=== PATIENT | female | born 1955 | race African-American/Black ===

== ENCOUNTER 2020-03-31 00:26 | Day surgery (SDC) | payer OTHER ==
[2020-03-31 00:47] VITALS: BMI 32.1
[2020-03-31] MEDS ORDERED: VANCOMYCIN 1 GM in D5W (PRE-DOCKED) 1,000 MG/250 ML IVPB ONE (00:55)
--- NOTE | 2020-03-31 01:02 | PDOC ---
History of Present Illness - General Chief Complaint: Wound Stated Complaint: SENT BY PCP Time Seen by Provider: 03/31/20 00:41 - History of Present Illness Initial Comments: HPI: 03/31/20 00:57 64 yo F PMH seizure disorder on topiramate (last seizure 2008), recently diagnosed diabetes in February 2020 on metformin, presenting from home for planned sebaceous cyst drainage with Dr. Michel today. States that she has had the cyst for many years on her posterior head, has had it drained in the past but never in the hospital. Saw Dr. Michel on Saturday, who asked her to come to the ER between 0000 and 0100 on for planned drainage later today. Has no other concerns. PCP: Dr. Duenas at [facility] Neuro: Dr. Kincaid at [facility] ROS: GENERAL/CONSTITUTIONAL: denies fever, chills, diaphoresis, generalized weakness HEAD, EYES, EARS, NOSE AND THROAT: denies rhinorrhea, nasal congestion, throat pain, throat swelling NEUROLOGIC: denies headache, focal weakness, dizziness, unsteady gait CARDIOVASCULAR: denies chest pain, syncope, palpitations, irregular heart rate, lightheadedness, peripheral edema RESPIRATORY: denies cough, shortness of breath, dyspnea with exertion GASTROINTESTINAL: denies abdominal pain, abdominal distension, nausea, vomiting, diarrhea, constipation GENITOURINARY: denies dysuria, frequency, urgency, hesitancy MUSCULOSKELETAL: denies myalgia, arthralgia, joint swelling, back pain, neck pain SKIN: denies rash, itching, pallor HEMATOLOGIC/IMMUNOLOGIC: denies easy bleeding, easy bruising, lymphadenopathy, frequent infections ENDOCRINE: denies unexplained weight gain, unexplained weight loss, heat intolerance, cold intolerance PSYCHIATRIC: denies anxiety, depression, suicidal or homicidal ideation, hallucinations PE: Gen: well-developed, well-nourished, NAD Neuro: AAOX4, CN II-XII intact HEENT: atraumatic, normocephalic Neck: trachea midline, supple CV: regular rate, regular rhythm, no murmurs, rubs, or gallops Pulm: CTA b/l, no wheezing Abd: soft, non-distended, non-tender MSK: full ROM, intact pulses Extr: no edema, no deformities Skin: warm, dry. Large posterior draining sebaceous cyst on posterior midline head just above neck MDM: Called Dr. Michel, who confirmed that he wants pre-op labs and antibiotics. - CBC, CMP - PT/PTT - Type and screen - EKG, CXR - NPO - vancomycin - admit 03/31/20 01:21 EKG normal sinus at 72 bpm, NC 128, QRS 70, QTc 418, T wave inversions in V2 and V3. No prior EKG to compare with. 03/31/20 02:22 CBC unremarkable. 03/31/20 02:29 Discussed with inpatient team, patient is admitted. Past History - Medical History Allergies/Adverse Reactions: Allergies Allergy/AdvReac Type Severity Reaction Status Date / Time cephalexin [From Keflex] Allergy Verified 03/31/20 01:23 - Reproductive History Is Patient Now?: No - Psycho-Social/Smoking History Smoking History: Current every day smoker Number of Cigarettes Smoked Daily: 4 Information on smoking cessation initiated: No - Substance Abuse Hx (Audit-C & DAST Scrn) How often the patient has a drink containing alcohol: Never Score: In Men: 4 or > Positive; In Women: 3 or > Positive: 0 Screen Result (Pos requires Nsg. Audit-10AR): Negative In the last yr the pt used illegal drug/Rx for NonMed reason: No Score: Yes response is considered Positive: 0 Screen Result (Positive result requires Nsg. DAST-10): Negative *Physical Exam - Vital Signs Last Vital Signs Temp Pulse Resp BP Pulse Ox 97.9 F 79 20 122/71 98 03/31/20 00:44 03/31/20 00:44 03/31/20 00:44 03/31/20 00:44 03/31/20 00:44 ED Treatment Course - LABORATORY CBC & Chemistry Diagram: 03/31/20 01:15 03/31/20 01:15 Discharge - Discharge Information Problems reviewed: Yes Clinical Impression/Diagnosis: Sebaceous cyst, Infected sebaceous cyst of skin Condition: Fair - Admission Yes - Follow up/Referral - Patient Discharge Instructions - Post Discharge Activity
--- NOTE | 2020-03-31 01:10 | PDOC ---
Attending Attestation - Resident Resident Name: Louise Guaman - ED Attending Attestation I have performed the following: I have examined & evaluated the patient, The case was reviewed & discussed with the resident, I agree w/resident's findings & plan, Exceptions are as noted - HPI HPI: 03/31/20 00:58 64yo female with a posterior cervical sebaceous cyst which opened up earlier this week with copious amounts of purulent drainage. Pt denies f/c. C/o neck pain. No garcia. No cp/sob. No abd pain. No n/v/d. Pt sent by DR. Michel for surgery today. States the cyst opened up prior to seeing Dr. Michel in the office on saturday. - Physicial Exam PE: 03/31/20 01:10 Gen: aaox3, uncomfortable neck: supple, posterior neck with large sebaceous cyst with purulent foul smelling discharge and surrounding induration and fluctuance, ttp, hot to touch heart: +s1s2 reg lungs: cta b/l abd: soft, nt/nd +bs ext: no c/c/e - Medical Decision Making 03/31/20 01:11 a/p: 64yo female with large infected sebaceous cyst to the posterior neck -draining foul smelling purulent drainage -ttp -indurated and fluctuance -will send preop labs, ivf, vanco -case discussed with Dr. Michel who will take the patient to the OR in the AM to operative on the infected sebaceous cyst -npo 03/31/20 01:47 microblog sent to [facility] for admission plan for OR today with Dr. Michel Heart Score/ECG Review - ECG Intrepretation Comment:: 03/31/20 01:29 sinus at 72, nl axis, t wave inversions v1-2, t wave flattening diffusely, no acute st changes Discharge - Discharge Information Problems reviewed: Yes Clinical Impression/Diagnosis: Sebaceous cyst, Infected sebaceous cyst of skin Condition: Fair - Admission Yes - Follow up/Referral Referrals: Noelle Duenas [Primary Care Provider] - - Patient Discharge Instructions - Post Discharge Activity
[2020-03-31] MEDS ORDERED: LACTATED RINGERS SOLUTION 1,000 ML/1,000 ML INFUS.BAG IV STA (01:12)
[2020-03-31] MEDS ORDERED: VANCOMYCIN 1 GRAM (PRE-DOCKED) 1,000 MG/250 ML BAG IVPB ONE ×2 (01:26→01:30)
[2020-03-31 01:43] LABS: BASO % 0.8 % (0-2.0); EOS % 2.8 % (0-4.5); HEMATOCRIT 39.4 % (32.4-45.2); HEMOGLOBIN 13.1 GM/dL (10.7-15.3); MCH 30.6 pg (25.7-33.7); MCHC 33.3 g/dl (32.0-36.0); MEAN CELL VOLUME 91.9 fl (80-96); MEAN PLT VOLUME 8.4 fl (7.5-11.1); MONO % 5.9 % (3.8-10.2); NEUT % 64.5 % (42.8-82.8); PLATELET COUNT 266 K/MM3 (134-434); RBC 4.29 M/mm3 (3.60-5.2); RDW 13.2 % (11.6-15.6); WHITE BLOOD COUNT 7.9 K/mm3 (4.0-10.0)
[2020-03-31 02:23] LABS: ALBUMIN 3.9 g/dl (3.4-5.0); BLOOD UREA NITROGEN 20.6 mg/dL (7-18); CALCIUM 9.5 mg/dL (8.5-10.1); CREATININE 1.1 mg/dL (0.55-1.3); POTASSIUM 5.1 mmol/L (3.5-5.1); TOT PROT 7.8 g/dl (6.4-8.2)
[2020-03-31 02:28] LABS: BILIRUBIN,TOTAL 0.5 mg/dL (0.2-1)
[2020-03-31 02:54] LABS: INR 1.08 (0.83-1.09); PROTHROMBIN TIME (PATIENT) 12.8 SEC (9.7-13.0)
[2020-03-31 02:57] LABS: ACTIVATED PTT 29.8 SECONDS (25.2-36.5)
--- OUTSIDE RECORDS SUMMARY | 2020-03-31 02:59 | XMS ---
:1955 Author Organization [facility] Support Name Relationship Address Phone [facility] Unavailable [address] [phone] [place] [address] GIANCARLO GOLDBERG SISTER [address] [place] [address] Re-disclosure Warning The records that you are about to access may contain information from federally- assisted alcohol or drug abuse programs. If such information is present, then the following federally mandated warning applies: This information has been disclosed to you from records protected by federal confidentiality rules (42 CFR part 2). The federal rules prohibit you from making any further disclosure of this information unless further disclosure is expressly permitted by the written consent of the person to whom it pertains or as otherwise permitted by 42 CFR part 2. A general authorization for the release of medical or other information is NOT sufficient for this purpose. The Federal rules restrict any use of the information to criminally investigate or prosecute any alcohol or drug abuse patient.The records that you are about to access may contain highly sensitive health information, the redisclosure of which is protected by Article 27-F of the [place] Public Health law. If you continue you may haveaccess to information: Regarding HIV / AIDS; Provided by facilities licensed or operated by the [place] [facility] [place] Office of Mental Health; or Provided by the [facility] [place] Office for People With Developmental Disabilities. If such information is present, then the following [facility] mandated warning applies: This information has been disclosed to you from confidential records which are protected by state law. State law prohibits you from making any further disclosure of this information without the specific written consent of the person to whom it pertains, or as otherwise permitted by law. Any unauthorized further disclosure in violation of state law may result in a fine or long term sentence or both. A general authorization for the release of medical or other information is NOT sufficient authorization for further disclosure. Insurance Providers Payer name Policy type Policy ID Covered Covered republican's Policy P anita / Coverage republican ID relationship to [place] Inf ormation type lomax CIGNA [id number] SP [id number] HEALTHCARE PPO CIGNA [id number] SP [id number] HEALTHCARE PPO Results ID Date Data Source [id number] 03/23/2020 12:00:00 AM EDT [facility] Name Value Range Interpretation Code Description Data Connie rce(s) Supporting Document(s ) nCoV [facility] RNA XXX TANA+probe- Imp This lab was ordered by [employer] alas reported by [facility]. ID Date Data Source [id number] 03/15/2020 12:00:00 AM EDT [facility] Name Value Range Interpretation Code Description Data Connie rce(s) Supporting Document(s ) nCoV [facility] RNA XXX TANA+probe- Imp This lab was ordered by [employer] alas reported by [employer]. ID Date Data Source [id number] 03/08/2020 12:00:00 AM EDT [facility] Name Value Range Interpretation Code Description Data Connie rce(s) Supporting Document(s ) nCoV [facility] RNA XXX TANA+probe- Imp This lab was ordered by [employer] alas reported by [employer]. ID Date Data Source [id number] 03/02/2020 12:00:00 AM EDT [facility] Name Value Range Interpretation Code Description Data Connie rce(s) Supporting Document(s ) 2018-nCoV [facility] RNA XXX TANA+probe- Imp This lab was ordered by [employer] alas reported by [facility]. ID Date Data Source [id number] 02/24/2020 12:00:00 AM EDT [facility] Name Value Range Interpretation Code Description Data Connie rce(s) Supporting Document(s ) nCoV [facility] RNA XXX TANA+probe- Imp This lab was ordered by [facility] alas reported by [facility]. ID Date Data Source [id number] 02/10/2020 12:00:00 AM EDT [facility] Name Value Range Interpretation Code Description Data Connie rce(s) Supporting Document(s ) nCoV [facility] RNA XXX TANA+probe- Imp This lab was ordered by [employer] alas reported by [facility]. ID Date Data Source [id number] 02/03/2020 12:00:00 AM EDT [facility] Name Value Range Interpretation Code Description Data Connie rce(s) Supporting Document(s ) nCoV [facility] RNA XXX TANA+probe- Imp This lab was ordered by [employer] alas reported by [employer]. ID Date Data Source [id number] 01/26/2020 12:00:00 AM EDT [facility] Name Value Range Interpretation Code Description Data Connie rce(s) Supporting Document(s ) nCoV [facility] RNA XXX TANA+probe- Imp This lab was ordered by [employer] alas reported by [employer]. ID Date Data Source [id number] 01/19/2020 12:00:00 AM EDT [facility] Name Value Range Interpretation Code Description Data Connie rce(s) Supporting Document(s ) 2018-nCoV [facility] RNA XXX TANA+probe- Imp This lab was ordered by [employer] alas reported by [employer]. ID Date Data Source [id number] 01/13/2020 12:00:00 AM EDT [facility] Name Value Range Interpretation Code Description Data Connie rce(s) Supporting Document(s ) 2018-nCoV [facility] RNA XXX TANA+probe- Imp This lab was ordered by [employer] alas reported by [employer]. ID Date Data Source [id number] 01/05/2020 12:00:00 AM EDT [facility] Name Value Range Interpretation Code Description Data Connie rce(s) Supporting Document(s ) nCoV [facility] RNA XXX TANA+probe- Imp This lab was ordered by [employer] alas reported by [facility]. ID Date Data Source [id number] 12/30/2019 12:00:00 AM EDT [facility] Name Value Range Interpretation Code Description Data Connie rce(s) Supporting Document(s ) nCoV [facility] RNA XXX TANA+probe- Imp This lab was ordered by [employer] al[facility] reported by [facility]. ID Date Data Source [id number] 12/23/2019 12:00:00 AM EDT [facility] Name Value Range Interpretation Code Description Data Connie rce(s) Supporting Document(s ) nCoV [facility] RNA XXX TANA+probe- Imp This lab was ordered by [employer] [facility] reported by [facility]. ID Date Data Source [id number] 12/16/2019 12:00:00 AM EDT [facility] Name Value Range Interpretation Code Description Data Connie rce(s) Supporting Document(s ) nCoV [facility] RNA XXX TANA+probe- Imp This lab was ordered by [employer] [facility] reported by [facility]. ID Date Data Source [id number] 12/08/2019 12:00:00 AM EDT [facility] Name Value Range Interpretation Code Description Data Connie rce(s) Supporting Document(s ) nCoV [facility] RNA XXX TANA+probe- Imp This lab was ordered by [employer] [facility] reported by [facility]. ID Date Data Source [id number] 12/03/2019 12:00:00 AM EDT [facility] Name Value Range Interpretation Code Description Data Connie rce(s) Supporting Document(s ) nCoV [facility] RNA XXX TANA+probe- Imp This lab was ordered by [employer] [facility] reported by [facility]. ID Date Data Source [id number] 12/01/2019 12:00:00 AM EDT [facility] Name Value Range Interpretation Code Description Data Connie rce(s) Supporting Document(s ) nCoV [facility] RNA XXX TANA+probe- Imp This lab was ordered by [employer] [facility] reported by [facility]. ID Date Data Source [id number] 11/26/2019 12:00:00 AM EDT [facility] Name Value Range Interpretation Code Description Data Connie rce(s) Supporting Document(s ) nCoV [facility] RNA XXX TANA+probe- Imp This lab was ordered by [employer] alas reported by [facility]. Procedure
--- NOTE | 2020-03-31 03:28 | PN ---
Teaching Attending Note Name of Resident: Ruth Lim ATTENDING PHYSICIAN STATEMENT I saw and evaluated the patient. I reviewed the resident's note and discussed the case with the resident. I agree with the resident's findings and plan as documented. SUBJECTIVE: 64yoF with h/o seizure disorder on topiramate, T2DM, and sebaceous cyst who presents for sebaceous cyst drainage by Dr. Michel. Has had the cyst drained numerous times in the past, most recently last year. Over the past week it has been more bothersome and started to drain spontaneously. She saw Dr. Michel for the first time on 03/30 and was told to present to the ED overnight for admission and cyst drainage. Denies fever, chills, chest pain, SOB, nausea, vomiting. OBJECTIVE: Vital Signs (72 hours) 03/31/20 00:44 Temperature 97.9 F Pulse Rate 79 Respiratory 20 Rate Blood Pressure 122/71 O2 Sat by Pulse 98 Oximetry (%) EXAM Gen: awake, alert, well-appearing CV: RRR, no MRG Resp: CTAB, unlabored Abd: Soft, NT, ND, +BS Ext: no edema Derm: Roughly 1cm open cyst posterior neck with purulent drainage. Tender to palpation surrounding area with induration and mild erythema, underlying fluctuance appreciated at least 3cm in diameter. Neuro: CN II-XII grossly intact, gait steady Psych: AOx3, appropriate mood affect Laboratory Results - last 24 hr 03/31/20 03/31/20 03/31/20 01:15 01:15 01:15 WBC 7.9 RBC 4.29 Hgb 13.1 Hct 39.4 MCV 91.9 MCH 30.6 MCHC 33.3 RDW 13.2 Plt Count 266 MPV 8.4 Absolute Neuts (auto) 5.1 Neutrophils % 64.5 Lymphocytes % 26.0 Monocytes % 5.9 Eosinophils % 2.8 Basophils % 0.8 Nucleated RBC % 0 PT with INR 12.80 INR 1.08 PTT (Actin FS) 29.8 Sodium 139 Potassium 5.1 Chloride 112 H Carbon Dioxide 23 Anion Gap 5 L BUN 20.6 H Creatinine 1.1 Est GFR (CKD-EPI)AfAm 61.44 Est GFR (CKD-EPI)NonAf 53.01 Random Glucose 89 Calcium 9.5 Total Bilirubin 0.5 AST 34 ALT 43 Alkaline Phosphatase 95 Total Protein 7.8 Albumin 3.9 SARS-CoV-2 (PCR) 03/31/20 01:40 WBC RBC Hgb Hct MCV MCH MCHC RDW Plt Count MPV Absolute Neuts (auto) Neutrophils % Lymphocytes % Monocytes % Eosinophils % Basophils % Nucleated RBC % PT with INR INR PTT (Actin FS) Sodium Potassium Chloride Carbon Dioxide Anion Gap BUN Creatinine Est GFR (CKD-EPI)AfAm Est GFR (CKD-EPI)NonAf Random Glucose Calcium Total Bilirubin AST ALT Alkaline Phosphatase Total Protein Albumin SARS-CoV-2 (PCR) Negative EKG reviewed in chart - TWI V1-V3, no prior available for comparison ASSESSMENT AND PLAN: 64yoF with h/o seizure disorder on topiramate, T2DM, and sebaceous cyst who presents for sebaceous cyst drainage by Dr. Michel. Sebaceous cyst with cellulitis Planned for OR in the morning with Dr. Michel - NPO, maintenance fluids - antibiotics per surgery - COVID negative Seizure disorder: continue topiramate T2DM: hold oral meds. ISS DVT ppx: SCD pending OR
--- NOTE | 2020-03-31 04:23 | HP ---
CHIEF COMPLAINT: Admission for sebaceous cyst drainage this morning by Dr. Michel HISTORY OF PRESENT ILLNESS: Lei Barker is a 64 year old with PMH seizure, diabetes, hypertension who reports to [facility] ED for planned sebaceous cyst surgery by Dr. Michel. She developed the cyst approximately 1 week ago; it began to drain on Saturday. She saw Dr. Michel on Saturday who scheduled her for surgery. She denies headache, fever, chills, chest pain, nausea, vomiting, abdominal pain. Recent Travel: None PAST MEDICAL HISTORY: Seizures -- last seizure 2008 PAST SURGICAL HISTORY: Social History: Smoking: None Alcohol: None Drugs: Smokes marijuana on weekend Allergies cephalexin [From Keflex] Allergy (Verified 03/31/20 01:23) HOME MEDICATIONS: REVIEW OF SYSTEMS See HPI PHYSICAL EXAMINATION Vital Signs - 24 hr 03/31/20 00:44 Temperature 97.9 F Pulse Rate 79 Respiratory 20 Rate Blood Pressure 122/71 O2 Sat by Pulse 98 Oximetry (%) GENERAL: Awake, alert, and fully oriented, in no acute distress. HEAD: Normal with no signs of trauma. EYES: Pupils equal, round and reactive to light, extraocular movements intact, sclera anicteric, conjunctiva clear. Neck: 2x2 cm cyst draining purulent , whitish, with blood tinged material. With surrounding erythema. EARS, NOSE, THROAT: Ears normal, nares patent, oropharynx clear without exudates. Moist mucous membranes. LUNGS: Breath sounds equal, clear to auscultation bilaterally. No wheezes, and no crackles. No accessory muscle use. HEART: Regular rate and rhythm, normal S1 and S2 without murmur, rub or gallop. ABDOMEN: Soft, nontender, not distended, normoactive bowel sounds, no guarding, no rebound, no masses. No hepatomegaly or splenomegaly. MUSCULOSKELETAL: Normal range of motion at all joints. No bony deformities or tenderness. No CVA tenderness. LOWER EXTREMITIES: 2+ pulses, warm, well-perfused. No calf tenderness. No peripheral edema. Laboratory Results - last 24 hr 03/31/20 03/31/20 03/31/20 01:15 01:15 01:15 WBC 7.9 RBC 4.29 Hgb 13.1 Hct 39.4 MCV 91.9 MCH 30.6 MCHC 33.3 RDW 13.2 Plt Count 266 MPV 8.4 Absolute Neuts (auto) 5.1 Neutrophils % 64.5 Lymphocytes % 26.0 Monocytes % 5.9 Eosinophils % 2.8 Basophils % 0.8 Nucleated RBC % 0 PT with INR 12.80 INR 1.08 PTT (Actin FS) 29.8 Sodium 139 Potassium 5.1 Chloride 112 H Carbon Dioxide 23 Anion Gap 5 L BUN 20.6 H Creatinine 1.1 Est GFR (CKD-EPI)AfAm 61.44 Est GFR (CKD-EPI)NonAf 53.01 Random Glucose 89 Calcium 9.5 Total Bilirubin 0.5 AST 34 ALT 43 Alkaline Phosphatase 95 Total Protein 7.8 Albumin 3.9 SARS-CoV-2 (PCR) 03/31/20 01:40 WBC RBC Hgb Hct MCV MCH MCHC RDW Plt Count MPV Absolute Neuts (auto) Neutrophils % Lymphocytes % Monocytes % Eosinophils % Basophils % Nucleated RBC % PT with INR INR PTT (Actin FS) Sodium Potassium Chloride Carbon Dioxide Anion Gap BUN Creatinine Est GFR (CKD-EPI)AfAm Est GFR (CKD-EPI)NonAf Random Glucose Calcium Total Bilirubin AST ALT Alkaline Phosphatase Total Protein Albumin SARS-CoV-2 (PCR) Negative ASSESSMENT/PLAN: Lei Barker is a 64 year old with PMH seizure, diabetes, hypertension who reports to [facility] ED for planned sebaceous cyst surgery by Dr. Michel. Admitted for surgery later this morning. # Sebaceous Cyst - Draining purulent material - Surgery with Dr. Michel this morning - Pre op labs ordered: CBC, CMP, PT, PTT, Type and Screen, NPO # Diabetes - Hold meformin - Sliding scale insulin DVT prophylaxis: SCDs Family Medical History Family History: As Documented Visit type - Emergency Visit Emergency Visit: No - New Patient This patient is new to me today: Yes Date on this admission: 03/31/20 - Critical Care Critical Care patient: No ATTENDING PHYSICIAN STATEMENT I saw and evaluated the patient. I reviewed the resident's note and discussed the case with the resident. I agree with the resident's findings and plan as documented. SUBJECTIVE: OBJECTIVE: ASSESSMENT AND PLAN:
[2020-03-31] MEDS ORDERED: LACTATED RINGERS SOLUTION 1,000 ML IV SCH ×2 (04:30→14:13)
[2020-03-31] MEDS: INSULIN SLIDING SCALE (NOVOLOG) 1 VIAL SQ SCH ×2 (09:14→15:03)
--- NOTE | 2020-03-31 09:51 | PN ---
Progress Note (short form) - Note Progress Note: S: To go for OR procedure for cyst removal. Patient has had multiple accounts of sebaceous cyst that's been returning. Patient noted that the cyst has been draining since . No other complaints. Pt has packing ALLERGIC TO KEFLEX (RASH/ITCHING) Vital Signs Temperature 98.2 F 03/31/20 04:32 Pulse Rate 68 03/31/20 09:17 Respiratory Rate 18 03/31/20 09:17 Blood Pressure 100/64 03/31/20 09:17 O2 Sat by Pulse Oximetry (%) 95 03/31/20 09:17 PE: Gen: NAD, awake, alert, oriented HEENT: Nc/At, EOMI, ZACHERY, no areas of tracking erythema Neck: Posterior aspect neck 2x3 cm draining cyst. packed with bandage on top. No surrounding erythema, no fluctuance apprecaited LUNG: CTA b/l without wheezes or rales RRR: RRR no murmurs ABD: soft, NT/ND, + BS EXT: No edema CBC, BMP 03/31/20 01:15 03/31/20 01:15 Active Medications Lactated Ringer's (Lactated Ringers Solution) 1,000 mls @ 125 mls/hr IV ASDIR [facility] Last Admin: 03/31/20 08:03 Dose: 125 mls/hr Documented by: Insulin Aspart (Novolog Vial Sliding Scale -) 1 vial SQ ACHS [facility]; Protocol Last Admin: 03/31/20 09:14 Dose: Not Given Documented by: A/P: Sebaceous Cyst Seizure disorder history Type 2 DM, controlled --OR for procedure with Dr. Michel today --ABX therapy and can switch to oral therapy post-procedure --LR 100cc/hr for maintenance --DM controlled: ISS for coverage if needed --Continue Topimax for seizure disorder Dispo: post-procedural dispo pending surgery recs Faizan Abel DO - [facility]
[2020-03-31] MEDS ORDERED: TOPIRAMATE 100 MG TABLET PO SCH ×2 (10:00→22:00)
--- OUTSIDE RECORDS SUMMARY | 2020-03-31 10:24 | XMS ---
:1955 Author Organization [facility] Support Name Relationship Address Phone [facility] Unavailable [address] [place] [address] GIANCARLO GOLDBERG SISTER [address] [phone] [place] [address] Re-disclosure Warning The records that you are [...] is protected by Article 27-F of the [facility] Public Health law. If you continue you may haveaccess to information: Regarding HIV / AIDS; Provided by facilities licensed or operated by the [facility] Office of Mental Health; or Provided by the [facility] Office for People With Developmental Disabilities. If such information is present, then the following [facility] mandated warning applies: This information has been [...] law may result in a fine or senior care sentence or both. A general authorization for the release of medical or other information is NOT sufficient authorization for further disclosure. Insurance Providers Payer name Policy type Policy ID Covered Covered democrat's Policy P anita / Coverage democrat ID relationship to [place] Inf ormation type [place] CIGNA [id number] SP [id number] HEALTHCARE PPO CIGNA [id number] SP [id number] HEALTHCARE PPO Results ID Date Data Source [id number] 03/23/2020 12:00:00 AM EDT [facility] Name Value Range Interpretation Code Description Data Connie rce(s) Supporting Document(s ) nCoV [facility] RNA XXX TANA+probe- Imp This lab was ordered by [employer] alas reported by [employer]. ID Date Data Source [id number] 03/15/2020 12:00:00 AM EDT [facility] Name Value Range Interpretation Code Description Data Connie rce(s) Supporting Document(s ) nCoV [facility] RNA XXX TANA+probe- Imp This lab was ordered by [employer] alas reported by [employer]. ID Date Data Source [id number] 03/08/2020 12:00:00 AM EDT [facility] Name Value Range Interpretation Code Description Data Connie rce(s) Supporting Document(s ) nCoV [facility] RNA XXX TANA+probe- Imp This lab was ordered by [employer] [facility] reported by [employer]. ID Date Data Source [id number] 03/02/2020 12:00:00 AM EDT [facility] Name Value Range Interpretation Code Description Data Connie rce(s) Supporting Document(s ) 2018-nCoV [facility] RNA XXX TANA+probe- Imp This lab was ordered by [employer] [facility]as reported by [employer]. ID Date Data Source [id number] 02/24/2020 12:00:00 AM EDT [facility] Name Value Range Interpretation Code Description Data Connie rce(s) Supporting Document(s ) nCoV [facility] RNA XXX TANA+probe- Imp This lab was ordered by [employer] alas reported by [employer]. ID Date Data Source [id number] 02/10/2020 12:00:00 AM EDT [facility] Name Value Range Interpretation Code Description Data Connie rce(s) Supporting Document(s ) nCoV [facility] RNA XXX TANA+probe- Imp This lab was ordered by [employer] [facility] reported by [employer]. ID Date Data Source [id number] 02/03/2020 12:00:00 AM EDT [facility] Name Value Range Interpretation Code Description Data Connie rce(s) Supporting Document(s ) nCoV [facility] RNA XXX TANA+probe- Imp This lab was ordered by [employer] [facility] reported by [employer]. ID Date Data Source [id number] 01/26/2020 12:00:00 AM EDT [facility] Name Value Range Interpretation Code Description Data Connie rce(s) Supporting Document(s ) nCoV [facility] RNA XXX TANA+probe- Imp This lab was ordered by [employer] [facility] reported by [employer]. ID Date Data Source [id number] 01/19/2020 12:00:00 AM EDT [facility] Name Value Range Interpretation Code Description Data Connie rce(s) Supporting Document(s ) 2018-nCoV [facility] RNA XXX TANA+probe- Imp This lab was ordered by [employer] [facility] reported by [employer]. ID Date Data Source [id number] 01/13/2020 12:00:00 AM EDT [facility] Name Value Range Interpretation Code Description Data Connie rce(s) Supporting Document(s ) 2018-nCoV [facility] RNA XXX TANA+probe- Imp This lab was ordered by [employer] al[facility] reported by [employer]. ID Date Data Source [id number] 01/05/2020 12:00:00 AM EDT [facility] Name Value Range Interpretation Code Description Data Connie rce(s) Supporting Document(s ) nCoV [facility] RNA XXX TANA+probe- Imp This lab was ordered by [employer] [facility] reported by [employer]. ID Date Data Source [id number] 12/30/2019 12:00:00 AM EDT [facility] Name Value Range Interpretation Code Description Data Connie rce(s) Supporting Document(s ) nCoV [facility] RNA XXX TANA+probe- Imp This lab was ordered by [employer] [facility] reported by [employer]. ID Date Data Source [id number] 12/23/2019 12:00:00 AM EDT [facility] Name Value Range Interpretation Code Description Data Connie rce(s) Supporting Document(s ) nCoV [facility] RNA XXX TANA+probe- Imp This lab was ordered by [employer] [facility] reported by [employer]. ID Date Data Source [id number] 12/16/2019 12:00:00 AM EDT [facility] Name Value Range Interpretation Code Description Data Connie rce(s) Supporting Document(s ) nCoV [facility] RNA XXX TANA+probe- Imp This lab was ordered by [employer] [facility] reported by [employer]. ID Date Data Source [id number] 12/08/2019 12:00:00 AM EDT [facility] Name Value Range Interpretation Code Description Data Connie rce(s) Supporting Document(s ) nCoV [facility] RNA XXX TANA+probe- Imp This lab was ordered by [employer] [facility] reported by [employer]. ID Date Data Source [id number] 12/03/2019 12:00:00 AM EDT [facility] Name Value Range Interpretation Code Description Data Connie rce(s) Supporting Document(s ) nCoV [facility] RNA XXX TANA+probe- Imp This lab was ordered by [employer] [facility] reported by [employer]. ID Date Data Source [id number] 12/01/2019 12:00:00 AM EDT [facility] Name Value Range Interpretation Code Description Data Connie rce(s) Supporting Document(s ) nCoV [facility] RNA XXX TANA+probe- Imp This lab was ordered by [employer] [facility] reported by [employer]. ID Date Data Source [id number] 11/26/2019 12:00:00 AM EDT [facility] Name Value Range Interpretation Code Description Data Connie rce(s) Supporting Document(s ) nCoV [facility] RNA XXX TANA+probe- Imp This lab was ordered by [employer] [facility] reported by [employer]. Procedure
[2020-03-31] MEDS ORDERED: MIDAZOLAM HCL 2 MG/2 ML SINGLE DOSE VIAL ONE (11:16)
[2020-03-31] MEDS ORDERED: PROPOFOL 20 ML ONE (11:16)
[2020-03-31] MEDS ORDERED: LIDOCAINE HCL/PF 2% SDV 5ML VIAL ONE (11:21)
[2020-03-31] MEDS ORDERED: oxyCODONE HCL 5 MG TABLET PO PRN ×2 (13:44→14:13)
[2020-03-31] MEDS ORDERED: ACETAMINOPHEN 325 MG TABLET (FP) PO PRN ×2 (13:45→14:13)
--- NOTE | 2020-03-31 13:47 | OP ---
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
--- NOTE | 2020-03-31 14:04 | EKG ---
Test Reason : Blood Pressure : / mmHG Vent. Rate : 072 BPM Atrial Rate : 072 BPM P-R Int : 128 ms QRS Dur : 070 ms QT Int : 382 ms P-R-T Axes : 022 -12 030 degrees QTc Int : 418 ms NORMAL SINUS RHYTHM NONSPECIFIC T WAVE ABNORMALITY ABNORMAL ECG NO PREVIOUS ECGS AVAILABLE Confirmed by MAKENZIE WHITTINGTON MD ([id number]) on 03/31/2020 2:03:50 PM Referred By: Confirmed By:MAKENZIE WHITTINGTON MD
[2020-03-31 14:25] VITALS: TEMP 98.4
[2020-03-31] MEDS ORDERED: INSULIN SLIDING SCALE (NOVOLOG) 1 VIAL SQ SCH (16:30)
[2020-03-31 18:17] VITALS: BP 107/58; PULSE 84
--- NOTE | 2020-04-04 12:53 | OP ---
DATE OF OPERATION: 03/31/2020 PREOPERATIVE DIAGNOSIS: Infected sebaceous cyst of the posterior neck. POSTOPERATIVE DIAGNOSIS: Infected sebaceous cyst of the posterior neck. PROCEDURE: Incision and drainage and excision of infected sebaceous cyst of the posterior neck. SURGEON: Anmol Michel MD ANESTHESIA: General. OPERATIVE FINDINGS: There was an infected [id number] sebaceous cyst of the posterior neck. It was approximately 6 cm in greatest dimension. The rest of the findings were unremarkable. PROCEDURE: The patient was placed on the operating table in the supine position. After the induction of general anesthesia, she was turned to the right lateral decubitus position and anchored there with the use of a helm bag. The area over the posterior neck was then prepped with Betadine and draped in sterile fashion. A timeout was taken. Incision made with a scalpel and taken down through skin and subcutaneous tissue. A large quantity of purulent drainage was obtained and sent for culture and sensitivity as well as the cyst contents. Using electrocautery and scalpel, attempts were made to excise as much of the adherent sebaceous cyst as possible. All excised material was sent for pathological examination. Hemostasis was secured with electrocautery and then the wound copiously irrigated with sterile saline. Hemostasis was again verified and then the wound was packed with 1-inch Iodoform gauze and dressed with dry sterile dressings. The procedure was terminated at this point and the patient transferred to the postanesthesia care unit in stable condition awake and alert. ESTIMATED BLOOD LOSS: 5 mL. REPLACEMENTS: Crystalloid. DRAINS: None. SPECIMEN: Cyst and contents to Pathology. I, Anmol Michel, was physically present in the operating room from the time the patient was placed on the operating table until she was transferred to the postanesthesia care unit in my accompaniment. MD KOJO Chatman/[id number] [facility]
--- NOTE | 2020-04-05 16:57 | PATH ---
Surgical Pathology Report Patient Name: JOURDAN GOLDBERG [facility]. Rec. #: [id number] /Age/Gender: 1955 (Age: 64) / F Account: [id number] Location: [facility] SURGICAL Taken: 03/31/2020 Received: 04/01/2020 Reported: 04/05/2020 Physicians: Anmol Michel MD Specimen(s) Received CYST POSTERIOR NECK Clinical History Posterior neck cyst Final Diagnosis POSTERIOR NECK CYST, EXCISION: EPIDERMAL INCLUSION CYST, FOCALLY RUPTURED, WITH ACUTE AND CHRONIC INFLAMMATION. Electronically Signed Luis Foley M.D. Gross Description Received in formalin labeled "posterior neck cyst," is a 3.5 x 2.5 x 0.7 cm aggregate of cook-brown, irregular soft tissue fragments, possibly consistent with a disrupted cyst. [employer] sections are submitted in one cassette. /04/04/2020 saudi/04/04/2020
== END 2020-03-31 18:52 | disposition home or self-care (01) ==
LOC: JER 00:26 → JASUSAT 01:11 → UNDOADMOB 01:11 → INTOOBSV 01:11 → JERBED 01:11 → UNDOADMOB 04:23 → JERBED 04:23 → J7W 09:39 → JASUSAT 18:52
PROVIDERS: ATTEND Internal Medicine
PROC: 0HB4XZZ Excision of Neck Skin, External Approach (ICD-10-PCS; principal; 2020-03-31 09:30)
DX: L72.3 Sebaceous cyst (principal); E11.9 Type 2 diabetes mellitus without complications; I10 Essential (primary) hypertension; Z79.84 Long term (current) use of oral hypoglycemic drugs
CPT/HCPCS: 36415; 71045-TC-FY; 80053; 82962; 85025; 85610; 85730; 86850; 86900; 86901; 88304-TC; 93005; 93010; 94760; 99285-25; U0003